=== PATIENT | male | born 1990 | race Caucasian/White ===

== ENCOUNTER 2023-12-16 22:35 | Emergency (ER) | payer MEDICAID ==
[~2023-12-16] VITALS: Ht 177.8 cm; Wt 150.0 kg
[2023-12-17] MEDS ORDERED: HYDR-3965 PO (00:44)
[2023-12-17] MEDS ORDERED: COLC0.6C3 PO (00:49)
[2023-12-17] MEDS: ketorolac tromethamine 15mg/ml inj. IV ONE (01:36)
[2023-12-17] MEDS: dexamethasone sod phosphate 10mg/ml inj IV STA (01:36)
[2023-12-17 01:40] VITALS: BP 157/85; PULSE 79; RESP 17; O2SAT 94
[2023-12-17 01:41] VITALS: TEMP 98.7
== END 2023-12-17 01:42 | disposition home or self-care (01) ==
LOC: ER 22:37
DX: M10.9 Gout, unspecified (principal); M25.562 Pain in left knee; M79.641 Pain in right hand; I10 Essential (primary) hypertension; Z79.899 Other long term (current) drug therapy; Z87.891 Personal history of nicotine dependence
CPT/HCPCS: 96374; 96375; 99284; J1100; J1885